=== PATIENT | male | born 1955 | race Caucasian/White ===

== ENCOUNTER → 2024-12-03 | Day surgery (SDC) | payer MEDICARE, OTHER ==
[~2024-12-03] MED LIST: Lidocaine 1% 5 ML VIAL ONE
== END ==
LOC: CC.SDS 10:08
PROVIDERS: ATTEND Family Medicine
DX: I83.813 Varicose veins of bilateral lower extremities with pain (principal); I10 Essential (primary) hypertension; E66.01 Morbid (severe) obesity due to excess calories; Z53.8 Procedure and treatment not carried out for other reasons; Z68.41 Body mass index [BMI] 40.0-44.9, adult; Z88.8 Allergy status to other drugs, medicaments and biological substances; Z88.5 Allergy status to narcotic agent; Z91.09 Other allergy status, other than to drugs and biological substances; Z79.899 Other long term (current) drug therapy
CPT/HCPCS: C1888

== ENCOUNTER → 2025-04-08 | Day surgery (SDC) | payer MEDICARE, OTHER ==
[~2025-04-08] MED LIST changes: -Lidocaine 1% 5 ML VIAL ONE; +Lidocaine 1% w/EPINEPHrine 100 ML, Sodium Chloride 0.9% 900 ML, Sodium Bicarbonate 10 MEQ INJECT ONE
== END ==
LOC: CC.SDS 10:47
PROVIDERS: ATTEND Family Medicine
DX: I87.2 Venous insufficiency (chronic) (peripheral) (principal); I83.811 Varicose veins of right lower extremity with pain; I10 Essential (primary) hypertension; E66.01 Morbid (severe) obesity due to excess calories; Z88.8 Allergy status to other drugs, medicaments and biological substances; Z68.41 Body mass index [BMI] 40.0-44.9, adult; Z79.899 Other long term (current) drug therapy
CPT/HCPCS: J2003; J3490; J7030